=== PATIENT | female | born 1970 | race Caucasian/White ===

== ENCOUNTER 2017-09-03 02:00 | Emergency (ER) | payer OTHER ==
[~2017-09-03] VITALS: Ht 160 cm; Wt 90.7 kg
[~2017-09-03 02:00] MED LIST: LISINOPRIL10 MG PO; MACROBID 100 M100 MG PO
--- OUTSIDE RECORDS SUMMARY | 2017-09-03 02:03 | XMS REPORT | Summary of Care ---
Author Author GRAHAM Houston, SANA Organization Unknown Address [facility] Phone Unavailable Care Team Providers Care Credit Control Administrator Name Role Phone GRAHAM Houston, SANA Unavailable Unavailable MITRA Houston, SHAWNEE Unavailable Unavailable PURNIMA N.P., FOREST Unavailable Unavailable OBONYKM N.P., STONE Unavailable Unavailable SANA STEVENSON MD Unavailable Unavailable Unavailable Unavailable Functional Status Name Dates Details Functional status health issues are not documented Status: Name Dates Details Cognitive status health issues are not documented Status: Problems Name Dates Details Visit for screening mammogram (V76.12, Z12.31) Status: Active Chemotherapy-induced nausea (787.02, R11.0) Status: Active Ringing in ears (388.30, H93.19) Status: Active Cervical cancer (180.9, C53.9) Status: Active Insomnia (780.52, G47.00) Status: Active Peripheral neuropathy (356.9, G62.9) Status: Active Menopausal syndrome (627.2, N95.1) Status: Active Pelvic pain in female (625.9, R10.2) Status: Active Headache (784.0, R51) Status: Active Encounter for screening mammogram for breast cancer (V76.12, Z12.31) Status: Active Cardiovascular risk factor (V15.89, Z91.89) Status: Active 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, 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 Dyspnea (786.09, R06.00) Status: Active Chest pain (786.50, R07.9) Status: Active Status post chemotherapy (V87.41, Z92.21) Status: Active Hyperlipidemia (272.4, E78.5) Status: Active On statin therapy (V58.69, Z79.899) Status: Active Screening for cervical cancer (V76.2, Z12.4) Status: Active Screening for breast cancer (V76.10, Z12.31) Status: Active Difficulty in swallowing (787.20, R13.10) Status: Active Hiatal hernia (553.3, K44.9) Status: Active Abdominal pain (789.00, R10.9) Status: Active Dysphagia (787.20, R13.10) Status: Active Diarrhea (787.91, R19.7) Status: Active GERD (gastroesophageal reflux disease) (530.81, K21.9) Status: Active Colon cancer screening (V76.51, Z12.11) Status: Active Medications Name Dates Details Lisinopril 20 MG Oral Tablet TAKE 1 TABLET DAILY Active Citalopram Hydrobromide 40 MG Oral Tablet TAKE 1 TABLET DAILY. * Refills: 0 Active Folic Acid 1 MG Oral Tablet TAKE 1 TABLET DAILY. * Refills: 0 Active Estradiol 1 MG Oral Tablet TAKE 1 TABLET BY MOUTH EVERY DAY * Quantity: 30 Refills: 5 PURNIMA N.P.FOREST * Start : 15-Aug-2015 Active MedroxyPROGESTERone Acetate 2.5 MG Oral Tablet TAKE 1 TABLET DAILY. * Quantity: 30 Refills: 5 PURNIMA N.P.FOREST * Start : 15-Aug-2015 Active Multivitamin Women Oral Tablet TAKE 1 TABLET DAILY. * Refills: 0 * Start : 11-Jun-2016 Active Vitamin C 1000 MG Oral Tablet TAKE 2 TABLET DAILY * Refills: 0 * Start : 11-Jun-2016 Active Ginkgo Biloba CAPS 120 mg 2 daily * Refills: 0 Active Vitamin D3 5000 UNIT Oral Tablet TAKE 1 TABLET DAILY * Refills: 0 * Start : 11-Jun-2016 Active Lyrica 150 MG Oral Capsule TAKE 1 CAPSULE DAILY * Refills: 0 Active Omeprazole 40 MG Oral Capsule Delayed Release TAKE 1 CAPSULE Daily 30 min to 1hr before breakfast * Quantity: 30 Refills: 6 HEBER N.PSTONE Morton * Start : 13-Jun-2017 Active Clenpiq 10-3.5-12 MG-GM -GM/160ML Oral Solution Drink first bottle at 5pm, Drink second bottle at 10pm. Follow doctors instructions. * Quantity: 1 Refills: 0 SHAWNEE MANRIQUEZ M.D. * Start : 13-Jun-2017 Active 2 x 160 ML Bottle Allergies and Adverse Reactions Name Dates Details No Known Allergies (Allergy) Status: Active Past Medical History Name Dates Details History of essential hypertension (V12.59, Z86.79) Status: Resolved History of Mild intermittent reactive airway disease without complication ( 493.90, J45.20) Status: Resolved History of ovarian cyst (V13.29, Z87.42) Status: Resolved Procedures Procedure Dates Details Port Flush Date: 10-Jun-2017 Colonoscopy Date: 13-Jun-2017 EGD (Esophagogastroduodenoscopy) Date: 13-Jun-2017 [QLH] CULTURE, STOOL (CAMPYLOBACTER, SALMONELLA/SHIGELLA) Date: 13-Jun-2017 [QLH] CLOSTRIDIUM DIFFICILE TOXIN A AND B, EIA Date: 13-Jun-2017 [QLH] CALPROTECTIN, STOOL Date: 13-Jun-2017 [QLH] FECAL LEUKOCYTE STAIN Date: 13-Jun-2017 [QLH] CBC (INCLUDES DIFF/PLT) Date: 10-Jun-2017 [QLH] CMP W/EGFR Date: 10-Jun-2017 [QLH] MAGNESIUM Date: 10-Jun-2017 [QLH] URIC ACID Date: 10-Jun-2017 [QLH] T4, FREE Date: 10-Jun-2017 [QLH] TSH, 3RD GENERATION Date: 10-Jun-2017 MA Digital Mammo Screening Derrick G0202 Date: 10-Jun-2017 Immunization Name Dates Details Immunizations not documented Family History Name Dates Details Family history of arthritis (V17.7, Z82.61) Status: Active Family history of essential hypertension (V17.49, Z82.49) Status: Active Name Dates Details Family history of myocardial infarction (V17.3, Z82.49) Status: Active Name Dates Details Family history of malignant neoplasm of cervix (V16.49, Z80.49) Status: Active Family history of fibromyalgia (V17.89, Z82.69) Status: Active Name Dates Details Family history of arthritis (V17.7, Z82.61) Status: Active Name Dates Details Family history of myocardial infarction (V17.3, Z82.49) Status: Active Name Dates Details Family history of Type 2 diabetes mellitus without complication (250.00, E11.9 ) Status: Active Name Dates Details Family history of arthritis (V17.7, Z82.61) Status: Active Family history of essential hypertension (V17.49, Z82.49) Status: Active Name Dates Details Family history of myocardial infarction (V17.3, Z82.49) Status: Active Name Dates Details Family history of essential hypertension (V17.49, Z82.49) Status: Active Family history of myocardial infarction (V17.3, Z82.49) Status: Active Name Dates Details Family history of alcoholism (V17.0, Z81.1) Status: Active Social History Name Dates Details - Status: Name Dates Details Never smoker Vital Signs Date Test Result Details [id number] BP Systolic 116 mm[Hg] Status: Comments: Location: LUE; Position: Sitting BP Diastolic 76 mm[Hg] Status: Comments: Location: LUE; Position: Sitting Height 63 in Status: Weight 214 lb Status: Body Mass Index Calculated 37.91 kg/m2 Status: Body Surface Area Calculated 1.99 m2 Status: Temperature 98.4 f Status: Heart Rate 93 /min Status: Comments: Location: L Radial; Quality: Normal Respiration Rate 16 /min Status: [id number]:31 BP Systolic 143 mm[Hg] Status: Comments: Location: RUE; Position: Sitting BP Diastolic 88 mm[Hg] Status: Comments: Location: RUE; Position: Sitting Height 63 in Status: Weight 213 lb Status: Body Mass Index Calculated 37.73 kg/m2 Status: Body Surface Area Calculated 1.99 m2 Status: Temperature 98 f Status: Comments: Method: Oral Heart Rate 74 /min Status: Respiration Rate 18 /min Status: Results Date Description Value Details :17 MA Digital Mammo Screen Derrick w timothy G0202 Digital Mammo Screen Derrick MA w timothy SEE NOTES Comments: BILATERAL DIGITAL SCREENING MAMMOGRAM 3D/2D WITH CAD: 06/12/2017CLINICAL: /Screen. Current study was evaluated with a Computer Aided Detection (CAD) system. COMPARISON: Comparison is made to exam dated: 05/14/2015 mammogram - [facility]. TECHNIQUE: Digital Breast Tomosynthesis was performed and utilized forInterpretation. [employer] Version 1.3 was utilized for computer aided detection. FINDINGS:The tissue of both breasts is heterogeneously dense, which could obscuredetection of small masses. There are benign calcifications in both breasts. No significant masses, calcifications, or other findings are seen in eitherbreast. There has been no significant interval change.IMPRESSION: BENIGNRECOMMENDATION:There is no mammographic evidence of malignancy. A 1 yearscreening mammogram is recommended.(06/13/2018) This exam was interpreted [id number] for [facility] [place]. Josué beltran/brittanyrad: 14:24:05 Geophysical Support Specialist(s): Halley Padilla [facility] sent: BI-RADS 1/2 Dense Mammogram BI-RADS: 2 Benign--Read by: Josué Padilla MDDictated Date/time: 06/12/17 14:24Electronically Signed by: Josué Padilla MD 06/12/1813:24FINAL REPORT [id number] . Bruce - PAP Comments: Department of Pathology & Laboratory Medicine For: MSB 2.[address] [place] [id number] [facility] Phone: [phone] Email: [email or web address] [address] [email or web address] Thin Prep LMP: Clinical History: Cervical cancer HPVHPV 16 & 18/45 Statement of Adequacy: Satisfactory for evaluation.Endocervical/transformation component present. Diagnosis:Negative for intraepithelial lesion or malignancy. Oral And Maxillofacial Pathologist: Domonique Palacios Electronically Signed ( [id number]) HPVHigh Risk~NegativeTesting is performed using FDA- approved APTIMA HPV assay (i.e., Paint Roller Winder-mediatedamplification of E6/E7 viral mRNA followed by hybridization protection assay). Thisassay is designed to detect the 14 high-risk types of human papillomavirus (HPV Types 16,18, 31, 33, 35, 39, 45, 51, 52, 56, 58, 59, 66 and 68) known to cause cervical cancer. The assay has been reported to detect more than 90% of CIN3+, an immediate precursor tocarcinoma in situ. A negative result does not exclude the possibility of cytologicabnormalities or of future or underlying CIN2, CIN3, or cancer. Personal lubricantscontaining polyquaternium 15 and antifungal medications containing tioconazole mayinterfere with the assay performance. In vitro transcripts from low-risk HPV pwpsibdkv17, 67, 70 and 82 exhibited cross- reactivity with the assay. The test result must beinterpreted along with the patient's cytology history, other risk factors and otherpertinent laboratory data. The results of this test are not intended to substitute forregular cervical cytology screening. The assay performance has not been evaluated forHPV vaccinated individuals. The effects of other potential variables, such as vaginaldischarge, use of tampons, etc. and specimen collection variables have not beenevaluated.This assay has been validated by the [facility] Department of Pathology and Laboratory Medicine.Shonna Khan MD, PhD The pap smear is a screening test used as an aid in detecting cervical cancer and itsprecursors. Published data indicates that pap smear testing is subject to false negativeand false positive results. For this reason, periodic repeat testing and follow up of anyunexplained clinical signs and symptoms is recommended.This slide was screened with the aid of the [employer] System. PAP REPORT Plan of Care Name Dates Details Planned Observations Planned Goals not documented Planned Encounters Gastroenterology Referral Appointment; SHAWNEE MANRIQUEZ M.D. On: 25-Jun-2017 8:00 Appointment; SANA STEVENSON M.D. On: 08-Jul-2017 12:40 Interventions Provided Labs/Procedures/Imaging* [QLH] CBC (INCLUDES DIFF/PLT); To Be Done: 10 Jun 2017 * [QLH] CMP W/EGFR; To Be Done: 10 Jun 2017 * [QLH] MAGNESIUM; To Be Done: 10 Jun 2017 * [QLH] T4, FREE; To Be Done: 10 Jun 2017 * [QLH] TSH, 3RD GENERATION; To Be Done: 10 Jun 2017 * [QLH] URIC ACID; To Be Done: 10 Jun 2017 * MA Digital Mammo Screening Derrick G0202; To Be Done: 10 Jun 2017 * Port Flush; To Be Done: 10 Jun 2017 * . [facility] - PAP; Done: 10 Jun 2017 Instructions Name Dates Details Instructions not documented Encounters Appointment; GENERAL, AUDIOLOGY- Encounter Diagnosis: Problem not documented On: 10-Aug-2015 8:30 Appointment; CUCO ABRAMS M.D. Encounter Diagnosis: Problem not documented On: 12-Aug-2015 13:45 Appointment; SANA STEVENSON M.D. Encounter Diagnosis: Problem not documented On: 15-Aug-2015 13:40 Appointment; SANA STEVENSON M.D. Encounter Diagnosis: Problem not documented On: 29-Aug-2015 12:40 Appointment; AUSTIN PINTO M.D. Encounter Diagnosis: Problem not documented On: 21-Sep-2015 9:30 Appointment; AUSTIN PINTO M.D. Encounter Diagnosis: Problem not documented On: 28-Sep-2015 14:30 Appointment; CUCO ABRAMS M.D. Encounter Diagnosis: Problem not documented On: 10-Oct-2015 13:00 Appointment; AUSTIN PINTO M.D. Encounter Diagnosis: Problem not documented On: 19-Oct-2015 10:45 Appointment; SANA STEVENSON M.D. Encounter Diagnosis: Problem not documented On: 07-Nov-2015 9:20 Appointment; SANA STEVENSON M.D. Encounter Diagnosis: Problem not documented On: 05-Dec-2015 10:40 Appointment; SANA STEVENSON M.D. Encounter Diagnosis: Problem not documented On: 19-Dec-2015 10:40 Appointment; SANA STEVENSON M.D. Encounter Diagnosis: Problem not documented On: 30-Jan-2016 9:40 Appointment; SANA STEVENSON M.D. Encounter Diagnosis: Problem not documented On: 13-Feb-2016 10:40 Appointment; AUSTIN PINTO M.D. Encounter Diagnosis: Problem not documented On: 22-Feb-2016 8:45 Appointment; UASTIN PINTO M.D. Encounter Diagnosis: Problem not documented On: 07-Mar-2016 15:00 Appointment; AUSTIN PINTO M.D. Encounter Diagnosis: Problem not documented On: 19-Mar-2016 10:40 Appointment; SANA STEVENSON M.D. Encounter Diagnosis: Problem not documented On: 14-May-2016 11:40 Appointment; SANA STEVENSON M.D. Encounter Diagnosis: Problem not documented On: 21-May-2016 11:40 Appointment; VICENTE MCDONNELL M.D. Encounter Diagnosis: Problem not documented On: 11-Jun-2016 15:00 Appointment; [facility] Encounter Diagnosis: Problem not documented On: 20-Jun-2016 16:00 Appointment; [facility] Encounter Diagnosis: Problem not documented On: 26-Jun-2016 15:00 Appointment; VICENTE MCDONNELL M.D. Encounter Diagnosis: Problem not documented On: 26-Jun-2016 15:30 Appointment; SANA STEVENSON M.D. Encounter Diagnosis: Problem not documented On: 13-Aug-2016 11:40 Appointment; VICENTE MCDONNELL M.D. Encounter Diagnosis: Problem not documented On: 24-Sep-2016 14:45 Appointment; VICENTE MCDONNELL M.D. Encounter Diagnosis: Problem not documented On: 30-Oct-2016 14:00 Appointment; SANA STEVENSON M.D. Encounter Diagnosis: Problem not documented On: 12-Nov-2016 11:20 Appointment; SANA STEVENSON M.D. Encounter Diagnosis: Problem not documented On: 05-Jun-2017 12:00 Appointment; SANA STEVENSON M.D. Encounter Diagnosis: Problem not documented On: 10-Jun-2017 14:40
[2017-09-03] MEDS ORDERED: MORPHINE SULFATE 2 MG/ML SYR IV STA (02:21)
[2017-09-03] MEDS ORDERED: PANTOPRAZOLE 40 MG 10ML VIAL IV STA (02:21)
[2017-09-03] MEDS ORDERED: KETOROLAC TROMETHAMINE 30 MG/ML VIAL IV STA (02:21)
[2017-09-03] MEDS ORDERED: SODIUM CHLORIDE 0.9% 1000ML 1,000 ML IV STA (02:21)
[2017-09-03] MEDS ORDERED: ONDANSETRON HCL 4 MG ORAL DISINTEGRATING TAB PO ONE (02:30)
[2017-09-03 02:33] LABS: BASOPHILS % 0.3 % (0.0-1.0); EOSINOPHILS # (AUTO) 0.1 (0.0-0.4); EOSINOPHILS % 0.7 % (0.0-6.0); HEMATOCRIT 46.4 % (34.2-44.1); HEMOGLOBIN 15.5 g/dL (12.0-16.0); LYMPHOCYTES # (AUTO) 1.4 (1.0-3.2); MEAN CORPUSCULAR HEMOGLOBIN 31.4 pg (28-32); MEAN CORPUSCULAR HGB CONC 33.4 g/dL (31-35); MEAN CORPUSCULAR VOLUME 94.1 fL (81-99); MONOCYTES # (AUTO) 0.6 (0.2-0.8); MONOCYTES % 4.7 % (4.4-11.3); NEUTROPHILS # (AUTO) 10.7 (2.1-6.9); NEUTROPHILS % 82.8 % (38.7-80.0); PLATELET COUNT 392 x10e3/uL (140-360); RED BLOOD COUNT 4.93 x10e6/uL (3.6-5.1); RED CELL DISTRIBUTION WIDTH 13.6 % (11.7-14.4)
[2017-09-03 02:41] LABS: INR 0.96
[2017-09-03 02:42] LABS: PARTIAL THROMBOPLASTIN TIME 22.6 seconds (23.8-35.5)
[2017-09-03 02:50] LABS: ALANINE AMINOTRANSFERASE 32 IU/L (0-55); ALBUMIN 4.1 g/dL (3.5-5.0); ALBUMIN/GLOBULIN RATIO 1.1 (0.8-2.0); ALKALINE PHOSPHATASE 56 IU/L (40-150); AMYLASE 49 U/L (25-125); ANION GAP 14.9 mmol/L (8-16); BLOOD UREA NITROGEN 17 mg/dL (7-26); BUN/CREATININE RATIO 16 (6-25); CALCIUM 10.3 mg/dL (8.4-10.2); CARBON DIOXIDE 30 mmol/L (22-29); CHLORIDE 101 mmol/L (98-107); CREATINE KINASE 51 IU/L (29-168); CREATININE, SERUM 1.04 mg/dL (0.57-1.11); EST GLOMERULAR FILTRATION RATE 57 ML/MIN (60-); GLUCOSE 182 mg/dL (74-118); LIPASE 24 U/L (8-78); MAGNESIUM 2.2 MG/DL (1.3-2.1); POTASSIUM 4.9 mmol/L (3.5-5.1); SODIUM 141 mmol/L (136-145)
[2017-09-03 02:56] LABS: CLARITY,URINE HAZY (CLEAR); COLOR,URINE YELLOW (YELLOW)
[2017-09-03 02:58] LABS: BILIRUBIN,URINE 1+ (NEGATIVE); KETONES,URINE NEGATIVE (NEGATIVE); LEUKOCYTE ESTERASE ,URINE TRACE (NEGATIVE); NITRITE,URINE NEGATIVE (NEGATIVE); PROTEIN,URINE DIPSTICK TRACE (NEGATIVE); URINE UROBILINOGEN 0.2 mg/dL (0.2 - 1)
[2017-09-03 02:59] LABS: PREGNANCY TEST, URINE NEGATIVE (NEGATIVE)
[2017-09-03 03:07] LABS: BACTERIA,URINE MANY /HPF; EPITHELIAL CELLS,URINE MANY /LPF; TRANSITIONAL EPI CELLS,URINE FEW
[2017-09-03] MEDS ORDERED: IOPAMIDOL 370 MG/ML 200 ML INFUS..BTL INJ ONE (03:29)
[2017-09-03] MEDS ORDERED: SODIUM CHLORIDE 0.9% 50ML 50 ML ONE (03:29)
[2017-09-03 03:58] LABS: BILIRUBIN,URINE NEGATIVE (NEGATIVE); CLARITY,URINE CLEAR (CLEAR); COLOR,URINE YELLOW (YELLOW); KETONES,URINE NEGATIVE (NEGATIVE); LEUKOCYTE ESTERASE ,URINE NEGATIVE (NEGATIVE); NITRITE,URINE NEGATIVE (NEGATIVE); PROTEIN,URINE DIPSTICK NEGATIVE (NEGATIVE); URINE UROBILINOGEN 0.2 mg/dL (0.2 - 1)
[2017-09-03 04:09] LABS: BACTERIA,URINE MODERATE /HPF; EPITHELIAL CELLS,URINE FEW /LPF; WBC,URINE (MAN) 0-5 /HPF (0-5)
--- NOTE | 2017-09-03 04:29 | Diagnostic Imaging Report ---
EXAM: CT Abdomen and Pelvis WITHOUT and WITH contrast INDICATION: History of renal stones, cervical carcinoma, abdominal pain COMPARISON: 03/29/2015 TECHNIQUE: Abdomen and pelvis were scanned utilizing a multidetector helical scanner from the lung base to the pubic symphysis before and after administration of IV contrast. Coronal and sagittal reformations were obtained. Routine protocol was performed. Scan was performed when during portal venous phase. IV CONTRAST: 100 mL of Isovue-300 ORAL CONTRAST: Water RADIATION DOSE: Total DLP: 1545.09 mGy*cm Estimated effective dose: (DLP x 0.015 x size factor) mSv COMPLICATIONS: None FINDINGS: LINES and TUBES: None. LOWER THORAX: Unremarkable HEPATOBILIARY: No focal hepatic lesions. No biliary ductal dilation. GALLBLADDER: No radio-opaque stones or sludge. No wall thickening. SPLEEN: No splenomegaly. PANCREAS: No focal masses or ductal dilatation. ADRENALS: No adrenal nodules KIDNEYS/URETERS: Kidneys enhance symmetrically. No hydronephrosis. No cystic or solid mass lesions. Bilateral nonobstructive stones measuring between 2 and 3 mm in diameter visualized in the right upper renal collecting system, bilateral interpolar regions and bilateral inferior poles GI TRACT: No abnormal distention, wall thickening, or evidence of bowel obstruction. Appendix is normal. PELVIC ORGANS/BLADDER: The cervical mass has been treated with now atrophy/resection of the lower uterine segment LYMPH NODES: No lymphadenopathy. VESSELS: Unremarkable. PERITONEUM / RETROPERITONEUM: No free air or fluid. BONES: Unremarkable. SOFT TISSUES: Unremarkable. IMPRESSION: 1. Post treatment resection/response of the cervical mass without evidence of residual disease or adenopathy. 2. Bilateral nonobstructing nephrolithiasis Signed by: Dr. Noel Benavides M.D. on 09/03/2017 4:26 AM
== END 2017-09-03 05:38 | disposition home or self-care (01) ==
LOC: ER 02:00
CPT/HCPCS: 36415; 74178; 80053; 81001; 81025; 82150; 82550; 82553; 83690; 83735; 84484; 85025; 85610; 85730; 99284; J1885; J7030; Q9967

== ENCOUNTER 2018-08-27 15:44 | Inpatient (IN) | payer OTHER ==
[~2018-08-27] VITALS: Ht 160 cm; Wt 93.0 kg
--- OUTSIDE RECORDS SUMMARY | 2018-08-27 15:47 | XMS REPORT ---
Author Author [facility] Address Unknown Phone Unavailable Care Team Providers Care Jewelry Setter Name Role Phone Isak TEJADA Unavailable Unavailable Problems This patient has no known problems. Allergies, Adverse Reactions, Alerts This patient has no known allergies or adverse reactions. Medications This patient has no known medications. Results Test Description Test Time Test Comments Text Results Atomic Results Result Comments CT ABDOMEN/PELVIS WOW [place] [address] Patient Name: RODRIGUE PARKER MR #: [id number] : 1970 Age/Sex: 47/F Req #: [id number] Adm Physician: Ordered by: CHINTAN TEJADA MD Report #: [id number] Location: ER Room/Bed: Procedure: [id number] CT/CT ABDOMEN/PELVIS WOW Exam Date: Exam Time: REPORT STATUS: Signed EXAM: CT Abdomen and Pelvis WITHOUT and WITH contrast INDICATION: History of renal stones, cervical carcinoma, abdominal pain COMPARISON: 03/29/2015 TECHNIQUE: Abdomen and pelvis were scanned utilizing a multidetector helical scanner from the lung base to the pubic symphysis before and after administration of IV contrast. Coronal and sagittal reformations were obtained. Routine protocol was performed. Scan was performed when during portal venous phase. IV CONTRAST: 100 mL of Isovue-300 ORAL CONTRAST: Water RADIATION DOSE: Total DLP: 1545.09 mGy*cm Estimated effective dose: (DLP x 0.015 x size factor) mSv COMPLICATIONS: None FINDINGS: LINES and TUBES: None. LOWER THORAX: Unremarkable HEPATOBILIARY: No focal hepatic lesions. No biliary ductal dilation. GALLBLADDER: No radio-opaque stones or sludge. No wall thickening. SPLEEN: No splenomegaly. PANCREAS: No focal masses or ductal dilatation. ADRENALS: No adrenal nodules KIDNEYS/URETERS: Kidneys enhance symmetrically. No hydronephrosis. No cystic or solid mass lesions. Bilateral nonobstructive stones measuring between 2 and 3 mm in diameter visualized in the right upper renal collecting system, bilateral interpolar regions and bilateral inferior poles GI TRACT: No abnormal distention, wall thickening, or evidence of bowel obstruction. Appendix is normal. PELVIC ORGANS/BLADDER: The cervical mass has been treated with now atrophy/resection of the lower uterine segment LYMPH NODES: No lymphadenopathy. VESSELS: Unremarkable. PERITONEUM / RETROPERITONEUM: No free air or fluid. BONES: Unremarkable. SOFT TISSUES: Unremarkable. IMPRESSION: 1. Post treatment resection/response of the cervical mass without evidence of residual disease or adenopathy. 2. Bilateral nonobstructing nephrolithiasis Signed by: Dr. Noel Benavides M.D. on 09/03/2017 4:26 AM Dictated By: NOEL OBRIEN MD 5 Transcribed By: CHRISTOPHER on 09/03/17425 COPY TO: CHINTAN TEJADA MD
--- OUTSIDE RECORDS SUMMARY | 2018-08-27 15:47 | XMS REPORT | Summary of Care ---
Author Author SANA STEVENSON M.D. Organization Unknown Address [facility] Phone Unavailable Care Team Providers Care Wool And Pelt Grader Name Role Phone SANA STEVENSON M.D. Unavailable Unavailable MITRA Houston, SHAWNEE Unavailable Unavailable HEBER N.P., STONE Unavailable Unavailable JEFF N.PPraveen, GLADYS Unavailable Unavailable SANA STEVENSON MD Unavailable Unavailable [...] EVERY DAY * Quantity: 30 Refills: 5 GLADYS AGUILAR N.P. * Start : 15-Aug-2015 Active MedroxyPROGESTERone Acetate 2.5 MG Oral Tablet TAKE 1 TABLET DAILY. * Quantity: 30 Refills: 5 GLADYS AGUILAR N.P. * Start : 15-Aug-2015 Active Multivitamin Women [...] before breakfast * Quantity: 30 Refills: 6 STONE BUCK N.P. * Start : 13-Jun-2017 Active Clenpiq 10-3.5-12 MG-GM -GM/160ML Oral Solution Drink first bottle at 5pm, Drink second bottle at 10pm. Follow doctors instruct ions. * Quantity: 1 Refills: 0 SHAWNEE MANRIQUEZ M.D. * Start : 13-Jun-2017 Active 2 x 160 ML Bottle Allergies and Adverse Reactions Name Dates Details No Known Allergies (Allergy) Status: Active Past Medical History Name Dates Details History of essential hypertension (V12.59, Z86.79) Status: Resolved History of Mild intermittent reactive airway disease without complication (493.90, J45.20) Status: Resolved History of ovarian cyst (V13.29, Z87.42) Status: Resolved Procedures Procedure Dates Details Procedures not documented Immunization Name Dates Details Immunizations not documented [...] Type 2 diabetes mellitus without complication (250.00, E11.9) Status: Active Name Dates Details Family history [...] smoker Vital Signs Date Test Result Details No Known Vitals to report Results Date Description Value Details Results not documented Plan of Care Name Dates Details Planned Observations Planned Goals not documented Planned Encounters Appointment; SANA STEVENSON M.D. On: 07-Jul-2018 13:40 Interventions Provided Medication Changes* Estradiol 1 MG Oral Tablet - Renew * MedroxyPROGESTERone Acetate 2.5 MG Oral Tablet - Renew Discussion/Summary* Ms. 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 * 1. Cancer Surveillance: * - Pelvic exam NITESH. * port a cath removal ordered. Sent order to Interventional radiology. Ms. Brooks aware and consent signed. * 2. Medication review: * Refill Provera and estradiol medication. She tolerating well w/o complications. * 3. Possible Fibromyalgia * - seen by her PCP for management per patient. She is taking Gabapentin & Lyrica at this time. * Discussion and Examination done with Dr. Stevenson. * RTC 6 months. No evidence of recurrence. * Discussed above with patient. Questions answered. Instructions Name Dates Details Instructions not documented Encounters Appointment; SANA STEVENSON M.D. Encounter Diagnosis: Problem not documented On: 30-Jan-2016 9:40 Appointment; SANA STEVENSON M.D. Encounter Diagnosis: Problem not documented On: 13-Feb-2016 10:40 Appointment; AUSTIN PINTO M.D. Encounter Diagnosis: Problem not documented On: 22-Feb-2016 8:45 Appointment; AUSTIN PINTO M.D. Encounter Diagnosis: Problem not documented On: 07-Mar-2016 15:00 Appointment; AUSTIN PINTO M.D. Encounter Diagnosis: Problem not documented On: 19-Mar-2016 10:40 Appointment; SANA STEVENSON M.D. Encounter Diagnosis: Problem not documented On: 14-May-2016 11:40 Appointment; SANA STEVENSON M.D. Encounter Diagnosis: Problem not documented On: 21-May-2016 11:40 Appointment; VICENTE MCDONNELL M.D. Encounter Diagnosis: Problem not documented On: 11-Jun-2016 15:00 Appointment; [facility] Encounter Diagnosis: Problem not documented On: 20-Jun-2016 16:00 Appointment; [facility] Encounter Diagnosis: Problem not documented On: [...] Diagnosis: Problem not documented On: 10-Jun-2017 14:40 Appointment; SHAWNEE MANRIQUEZ M.D. Encounter Diagnosis: Problem not documented On: 13-Jun-2017 11:00 Appointment; SHAWNEE MANRIQUEZ M.D. Encounter Diagnosis: Problem not documented On: 02-Jul-2017 11:00 Appointment; SANA STEVENSON M.D. Encounter Diagnosis: Problem not documented On: 08-Jul-2017 12:40 Appointment; SANA STEVENSON M.D. Encounter Diagnosis: Problem not documented On: 18-Nov-2017 12:40 Appointment; SANA STEVENSON M.D. Encounter Diagnosis: Problem not documented On: 06-Jan-2018 12:20
[2018-08-27 17:17] LABS: CLARITY,URINE CLEAR (CLEAR); COLOR,URINE YELLOW (YELLOW)
[2018-08-27 17:18] LABS: BILIRUBIN,URINE NEGATIVE (NEGATIVE); KETONES,URINE NEGATIVE (NEGATIVE); LEUKOCYTE ESTERASE ,URINE NEGATIVE (NEGATIVE); NITRITE,URINE NEGATIVE (NEGATIVE); PROTEIN,URINE DIPSTICK NEGATIVE (NEGATIVE); URINE UROBILINOGEN 0.2 mg/dL (0.2 - 1)
[2018-08-27 17:29] LABS: BACTERIA,URINE MANY /HPF; EPITHELIAL CELLS,URINE MANY /LPF; WBC,URINE (MAN) 0-5 /HPF (0-5)
[2018-08-27] MEDS ORDERED: SODIUM CHLORIDE 0.9% 1000ML 1,000 ML IV STA (19:41)
[2018-08-27] MEDS ORDERED: MORPHINE SULFATE INJ 4 MG/ML INJ 1ML IV ONE (19:41)
[2018-08-27] MEDS ORDERED: KETOROLAC TROMETHAMINE 30 MG/ML VIAL IV ONE (19:41)
[2018-08-27] MEDS ORDERED: ONDANSETRON HCL INJ 2MG/ML 2ML 2 MG/ML VIAL IV ONE (19:41)
--- NOTE | 2018-08-27 19:43 | Diagnostic Imaging Report ---
EXAM: CT Abdomen and Pelvis WITHOUT contrast INDICATION: Right flank pain for 3 days. Kidney stones. COMPARISON: None. TECHNIQUE: Abdomen and pelvis were scanned utilizing a multidetector helical scanner from the lung base to the pubic symphysis without administration of IV contrast. Absence of intravenous contrast decreases sensitivity for detection of focal lesions and vascular pathology. Coronal and sagittal reformations were obtained. Renal stone protocol was performed. IV CONTRAST: None. ORAL CONTRAST: Water RADIATION DOSE: Total DLP: 831.60 mGy*cm Estimated effective dose: (DLP x 0.015 x size factor) mSv COMPLICATIONS: None FINDINGS: Examination is on the exception list with unverified demographics at the time of interpretation. LINES and TUBES: Artifact within the inferior right atrium may represent a catheter. LOWER THORAX: Bibasilar subsegmental atelectasis. HEPATOBILIARY: Hepatic steatosis. No focal hepatic lesions. No biliary ductal dilation. GALLBLADDER: No radio-opaque stones or sludge. No wall thickening. SPLEEN: No splenomegaly. PANCREAS: No focal masses or ductal dilatation. ADRENALS: No adrenal nodules KIDNEYS/URETERS: There is mild right hydroureteronephrosis, secondary to the presence of an obstructing calculus just proximal to the right UVJ measuring 5 mm on image 158 series 3. 2.7 mm calculus is present in the lower pole of the right kidney on image 68. Punctate calculus in the lower pole of the left kidney also on image 68. 3 mm calculus in the lower pole of the left kidney on images 64. 2 mm calculus in the interpolar region of the right kidney on image 55. GI TRACT: No abnormal distention, wall thickening, or evidence of bowel obstruction. Appendicolith at the base of the appendix which is otherwise unremarkable. PELVIC ORGANS/BLADDER: There is fat stranding in the parametrium bilaterally, left greater than right as seen on image 153 series 3, a significantly changed compared to the prior examination. Small rounded calcific densities present posterior to the urinary bladder are consistent with phleboliths, unchanged. LYMPH NODES: No lymphadenopathy. VESSELS: Unremarkable. PERITONEUM / RETROPERITONEUM: No free air or fluid. BONES: Unremarkable. SOFT TISSUES: Small fat-containing umbilical hernias. IMPRESSION: 1. 5 mm right distal ureteral calculus resulting in mild right hydroureteronephrosis. 2. Additional bilateral nephrolithiasis as detailed above. 3. Hepatic steatosis. 4. Stable mild stranding of the parametrium bilaterally, left greater than right. No measurable masses. Signed by: Dr. Torey Chairez M.D. on 08/27/2018 7:39 PM
[2018-08-27] MEDS ORDERED: HYDROMORPHONE 1MG/1ML INJ IV STA (20:04)
[2018-08-27] MEDS ORDERED: HYDROMORPHONE 2MG/ML 2 MG/ML ML ONE (20:05)
[2018-08-27] MEDS ORDERED: HYDROMORPHONE 1MG/1ML INJ IV PRN (20:15)
[2018-08-27 20:30] LABS: BASOPHILS # (AUTO) 0.1 (0.0-0.1); BASOPHILS % 0.5 % (0.0-1.0); EOSINOPHILS # (AUTO) 0.3 (0.0-0.4); EOSINOPHILS % 3.5 % (0.0-6.0); HEMATOCRIT 41.8 % (34.2-44.1); HEMOGLOBIN 13.7 g/dL (12.0-16.0); LYMPHOCYTES # (AUTO) 1.3 (1.0-3.2); LYMPHOCYTES % 14.2 % (18.0-39.1); MEAN CORPUSCULAR HEMOGLOBIN 31.2 pg (28-32); MEAN CORPUSCULAR HGB CONC 32.8 g/dL (31-35); MEAN CORPUSCULAR VOLUME 95.2 fL (81-99); MONOCYTES # (AUTO) 0.7 (0.2-0.8); MONOCYTES % 7.2 % (4.4-11.3); NEUTROPHILS % 74.3 % (38.7-80.0); PLATELET COUNT 357 x10e3/uL (140-360); RED BLOOD COUNT 4.39 x10e6/uL (3.6-5.1); RED CELL DISTRIBUTION WIDTH 13.2 % (11.7-14.4)
[2018-08-27] MEDS ORDERED: HYDROMORPHONE 2MG/ML 2 MG/ML ML IV ONE (20:30)
[2018-08-27 20:42] LABS: ALBUMIN 3.8 g/dL (3.5-5.0); ANION GAP 11.8 mmol/L (8-16); CALCIUM 10.1 mg/dL (8.4-10.2); CREATININE, SERUM 1.29 mg/dL (0.57-1.11); POTASSIUM 3.8 mmol/L (3.5-5.1)
[2018-08-27] MEDS: CEFTRIAXONE SOD 1 GM/NS 50 ML 50 ML IV SCH (21:44)
[2018-08-27] MEDS: SODIUM CHLORIDE 0.9% 1000ML 1,000 ML IV SCH (21:44)
[2018-08-27] MEDS ORDERED: LISINOPRIL20 MG PO (21:56)
[2018-08-27] MEDS ORDERED: ESTRADIOL1 MG PO (21:56)
[2018-08-27] MEDS ORDERED: LYRICA75 MG PO (21:56)
[2018-08-27] MEDS ORDERED: GABAPENTIN800 MG PO (21:57)
[2018-08-27] MEDS ORDERED: CITALOPRAM HBR20 MG PO (21:58)
[2018-08-27 22:24] VITALS: BP 133/72
--- NOTE | 2018-08-27 22:47 | NUR ---
PATIENT RECEIVED FROM EMERGENCY DEPARTMENT AT 2210. SHE'S ALERT AND ORIENTED X3, NO RESPIRATORY DISTRESS OBSERVED AND SHE DENIES PAIN. REDNESS NOTED TO THE LEFT FOOT, NO EDEMA NOTED TO THE EXTREMITIES. ORIENTED TO SURROUNDINGS, CALL LIGHT WITHIN EASY REACH, SHE'S INSTRUCTED TO CALL FOR ASSISTANCE NEEDED.
[2018-08-27 22:54] VITALS: BP 133/72
[2018-08-27 23:10] VITALS: BP 133/72
[2018-08-28] VITALS (8 sets, daily range): BP systolic 105–123; BP diastolic 56–72
[2018-08-28] MEDS: HYDROMORPHONE 2MG/ML 2 MG/ML ML IV PRN ×2 (04:42→17:57)
[2018-08-28] MEDS: ONDANSETRON HCL INJ 2MG/ML 2ML 2 MG/ML VIAL IV PRN ×2 (04:43→17:57)
--- NOTE | 2018-08-28 04:44 | NUR ---
PATIENT C/O RIGHT FLANK PAIN WITH PAIN SCORE #4, MEDICATED WITH DILAUDID AND ZOFRAN ORDERED. SHE USED THE RESTROOM PRIOR TO ADMINISTERING THE MEDICATION. CALL LIGHT WITHIN EASY REACH, SHE'S INSTRUCTED TO CALL FOR ASSISTANCE UPON GETTING OUT OF THE BED.
[2018-08-28] MEDS: SODIUM CHLORIDE 0.9% 1000ML 1,000 ML IV SCH ×3 (06:47→17:48)
[2018-08-28 07:05] LABS: BASOPHILS # (AUTO) 0.1 (0.0-0.1); BASOPHILS % 0.7 % (0.0-1.0); EOSINOPHILS # (AUTO) 0.4 (0.0-0.4); EOSINOPHILS % 6.2 % (0.0-6.0); HEMATOCRIT 36.1 % (34.2-44.1); HEMOGLOBIN 11.9 g/dL (12.0-16.0); LYMPHOCYTES # (AUTO) 1.4 (1.0-3.2); LYMPHOCYTES % 20.1 % (18.0-39.1); MEAN CORPUSCULAR HEMOGLOBIN 31.6 pg (28-32); MEAN CORPUSCULAR VOLUME 95.8 fL (81-99); MONOCYTES # (AUTO) 0.6 (0.2-0.8); MONOCYTES % 8.2 % (4.4-11.3); NEUTROPHILS # (AUTO) 4.5 (2.1-6.9); NEUTROPHILS % 64.4 % (38.7-80.0); PLATELET COUNT 292 x10e3/uL (140-360); RED BLOOD COUNT 3.77 x10e6/uL (3.6-5.1); RED CELL DISTRIBUTION WIDTH 13.2 % (11.7-14.4)
[2018-08-28 07:28] LABS: ALBUMIN 3.1 g/dL (3.5-5.0); ALBUMIN/GLOBULIN RATIO 1.1 (0.8-2.0); ANION GAP 9.2 mmol/L (8-16); CALCIUM 8.8 mg/dL (8.4-10.2); CREATININE, SERUM 1.09 mg/dL (0.57-1.11); POTASSIUM 4.2 mmol/L (3.5-5.1)
--- NOTE | 2018-08-28 07:37 | NUR ---
Rcvd patient in report this am. Patient is asleep in bed at this time. No s/s of distress noted
--- NOTE | 2018-08-28 13:06 | Diagnostic Imaging Report ---
Exam: KUB -3 views Clinical History: Renal stones Comparison: CT abdomen/pelvis 08/27/2018. Findings: Nonobstructive bowel gas pattern. There is a 5 mm calcification near the right UVJ, corresponding to UVJ stone on prior CT. There are punctate 2 mm bilateral lower pole renal calcifications, better characterized on prior CT. Additional small bilateral renal stones are not well seen by radiograph. No acute bony abnormality. Impression: A 5 mm calcification near the right UVJ, corresponding to stone on prior CT. The position is similar to the prior study, accounting for differences in technique. Additional punctate bilateral renal stones, better characterized on prior CT. Signed by: Dr. Rocky Nelson MD on 08/28/2018 1:03 PM
--- NOTE | 2018-08-28 15:49 | Consultation ---
DATE OF CONSULTATION: 08/28/2018 Urology Consultation REASON FOR CONSULTATION: Renal colic. HISTORY OF PRESENT ILLNESS: oNhemi Brooks is a 48-year-old woman with a history of recurrent urolithiasis. The patient has not followed up in a few years. She had stone surgery to address multiple stones and one of those surgeons diagnosed the patient with a cervical mass, this was a rather advanced cancer. She underwent radiotherapy and chemotherapy and is believed to be cured. The patient had severe right-sided flank pain radiating to the right groin, reported to the emergency room, was evaluated and found to have an obstructing 5 mm ureteral stone and was subsequently admitted. PAST MEDICAL AND SURGICAL HISTORY: 1. Cervical cancer, status post radiotherapy and chemotherapy. 2. zero, para zero. 3. Recurrent urolithiasis. ALLERGIES: NONE KNOWN. CURRENT MEDICATIONS: Refer to the MAR. SOCIAL HISTORY: The patient denies smoking, alcohol, or drug use. 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 FAMILY HISTORY: Noncontributory to the active urological problems. REVIEW OF SYSTEMS: Discussed as above in history of present illness and past medical history, otherwise negative for all systems. PHYSICAL EXAMINATION: GENERAL: Healthy-appearing 48-year-old woman lying in bed, in no apparent distress. VITAL SIGNS: She is currently afebrile. Vital signs are currently stable. ABDOMEN: Soft, nondistended, and nontender with mild right-sided costovertebral angle tenderness. Kidneys not palpable without hepatosplenomegaly. No obvious evidence of hernia. For the remaining physical examination systems, please refer to the admission history and physical in the chart as well as the ERT sheet. LABORATORY STUDIES: CT scan of the abdomen pelvis shows bilateral small kidney stones. It also shows a 5 mm obstructing distal right ureteral stone with hydroureteronephrosis. Urine culture is pending. White blood cell count 7050, hemoglobin is low at 11.9, and platelets are normal at 292,000. The patient's creatinine was slightly elevated last night at 1.29 and this morning, it is better at 1.09. Calcium was normal at 8.8. ASSESSMENT: 1. Right renal colic. 2. Right ureterolithiasis. 3. Right hydroureteronephrosis. 4. Bilateral small kidney stones. 5. Anemia. 6. Acute renal failure that is improved. 7. Bacteriuria and possible urinary tract infection. PLAN: 1. Intravenous antibiotics. 2. Intravenous hydration. 3. Stone passage trial. 4. Should the patient fail to pass her stone with a reasonable trial of at least another day, then I will post her to the operating room for stone management procedure and ureteral stent placement. Thank you very much for allowing us in care of your patient. We will be happy to follow along with you as well as an outpatient. Julio C MD Ju [facility] /[id number] cc: Cash Medina MD
[2018-08-28] MEDS: CEFTRIAXONE SOD 1 GM/NS 50 ML 50 ML IV SCH (21:32)
[2018-08-29] MEDS: HYDROMORPHONE 2MG/ML 2 MG/ML ML IV PRN ×2 (00:02→12:57)
[2018-08-29] MEDS: ONDANSETRON HCL INJ 2MG/ML 2ML 2 MG/ML VIAL IV PRN ×2 (00:02→12:58)
[2018-08-29 00:03] VITALS: BP 122/60
[2018-08-29 03:48] VITALS: BP 114/58
[2018-08-29] MEDS: SODIUM CHLORIDE 0.9% 1000ML 1,000 ML IV SCH (04:07)
[2018-08-29] MEDS ORDERED: ACETAMINOPHEN 1000 MG/100 ML IV PRN (04:45)
[2018-08-29 06:03] LABS: BASOPHILS % 0.8 % (0.0-1.0); EOSINOPHILS # (AUTO) 0.4 (0.0-0.4); EOSINOPHILS % 7.4 % (0.0-6.0); HEMATOCRIT 34.1 % (34.2-44.1); HEMOGLOBIN 10.6 g/dL (12.0-16.0); LYMPHOCYTES # (AUTO) 1.2 (1.0-3.2); LYMPHOCYTES % 24.7 % (18.0-39.1); MEAN CORPUSCULAR HEMOGLOBIN 30.3 pg (28-32); MEAN CORPUSCULAR HGB CONC 31.1 g/dL (31-35); MEAN CORPUSCULAR VOLUME 97.4 fL (81-99); MONOCYTES # (AUTO) 0.4 (0.2-0.8); MONOCYTES % 8.2 % (4.4-11.3); NEUTROPHILS # (AUTO) 2.9 (2.1-6.9); NEUTROPHILS % 58.7 % (38.7-80.0); PLATELET COUNT 277 x10e3/uL (140-360); RED CELL DISTRIBUTION WIDTH 13.3 % (11.7-14.4)
[2018-08-29 06:19] LABS: ANION GAP 9.8 mmol/L (8-16); BLOOD UREA NITROGEN 10 mg/dL (7-26); BUN/CREATININE RATIO 13 (6-25); CALCIUM 8.2 mg/dL (8.4-10.2); CARBON DIOXIDE 25 mmol/L (22-29); CHLORIDE 108 mmol/L (98-107); EST GLOMERULAR FILTRATION RATE > 60 ML/MIN (60-); GLUCOSE 94 mg/dL (74-118); POTASSIUM 3.8 mmol/L (3.5-5.1); SODIUM 139 mmol/L (136-145)
--- NOTE | 2018-08-29 07:00 | NUR ---
BEDSIDE ROUNDS COMPLETE NO DISTRESS NOTED, UPDATED ON POC VOICED UNDERSTANDING, RESPIRATIONS EVEN/ UNLABORED, DENIES PAIN AT THIS TIME, CALL LIGHT IN REACH WILL CONTINUE TO MONITOR
[2018-08-29 08:47] VITALS: BP 136/70
[2018-08-29 09:02] VITALS: BP 136/70
--- NOTE | 2018-08-29 09:40 | NUR ---
down to or left in stable condition
[2018-08-29] MEDS ORDERED: IOPAMIDOL 610MG/1ML 300 MG/ML VIAL IV ONE (10:27)
[2018-08-29] MEDS ORDERED: BELLADONNA/OPIUM 60 MG SUPP PR ONE (10:27)
[2018-08-29] MEDS ORDERED: BELLADONNA/OPIUM 30 MG SUPP RC PRN (11:15)
--- NOTE | 2018-08-29 12:10 | NUR ---
back to rm [id number] no distress noted, ambulated with assistance to bathroom, pink urine noted, no other co voiced call light in reach will continue to monitor
[2018-08-29] MEDS: PHENAZOPYRIDINE HCL 100 MG TAB PO SCH ×2 (12:58→17:24)
[2018-08-29] MEDS ORDERED: ACETAMINOPHEN/CODEINE 300MG - 30MG TAB PO PRN (14:00)
[2018-08-29] MEDS ORDERED: OXYBUTYNIN CHLORIDE 5 MG TAB PO SCH (15:00)
[2018-08-29] MEDS ORDERED: TYLENOL WITH C1 EACH PO (16:29)
[2018-08-29] MEDS ORDERED: LEVAQUIN500 MG PO (16:29)
[2018-08-29] MEDS ORDERED: DITROPAN XL5 MG PO (16:30)
[2018-08-29 16:32] VITALS: BP 127/67
[2018-08-29] MEDS ORDERED: SEVOFLURANE INHAL SOLN 250 ML PEN BTL ONE (18:16)
[2018-08-29] MEDS ORDERED: DEXAMETHASONE SOD PHOS INJ 4 MG/ML VIAL ONE (18:16)
[2018-08-29] MEDS ORDERED: ONDANSETRON HCL INJ 2MG/ML 2ML 2 MG/ML VIAL ONE (18:16)
[2018-08-29] MEDS ORDERED: LIDOCAINE HCL 2% LOCAL INJ 5 ML SDV VIAL INJ ONE (18:16)
[2018-08-29] MEDS ORDERED: PROPOFOL IV EMULSION 10 MG/ML 20 ML VIAL ONE (18:16)
[2018-08-29] MEDS ORDERED: GENTAMICIN SULFATE 40 MG/ML 2 ML VIAL ONE (18:16)
[2018-08-29] MEDS ORDERED: MIDAZOLAM HCL 2 MG/2 ML VIAL ONE (18:42)
[2018-08-29] MEDS ORDERED: FENTANYL CITRATE/PF 100MCG/2 ML INJ ONE (18:42)
--- NOTE | 2018-09-04 03:52 | Operative Report ---
DATE OF PROCEDURE: 08/29/2018 SURGEON: Julio C Dodd MD PREOPERATIVE DIAGNOSES: 1. Right hydronephrosis. 2. Urinary tract infection. POSTOPERATIVE DIAGNOSES: 1. Right hydronephrosis due to stricture. 2. Urinary tract infection. 3. Right ureteral stricture. 4. Atrophic (senile) vaginitis. 5. Mild cystocele. OPERATION PERFORMED: 1. Cystourethroscopy with bilateral ureteral catheterization and retrograde ureteropyelography. 2. Interpretation of retrograde ureteropyelography. 3. Supervision of fluoroscopy, no radiologist present. 4. Right ureteroscopy with dilation of ureteral stricture (separate procedure performed for the diagnosis of the stricture done with a separate scope). 5. Radiological services for supervision and interpretation of stricture dilation. 6. Cystourethroscopy and insertion of right indwelling ureteral stent (separate procedure performed to relieve the hydronephrosis due to stricture). 7. Pelvic examination under anesthesia. ANESTHESIA: General. COMPLICATIONS: None. CLINICAL SUMMARY: Nohemi Brooks is a 48-year-old woman, was felt to have a right obstructing ureterolithiasis with hydronephrosis and renal colic. She is brought for stenting. She is aware of the risks of bleeding, infection, injury to adjacent structures, need for additional procedures and elected to proceed. OPERATIVE PROCEDURE IN DETAIL: Informed consent was verified. Nohemi Brooks was properly identified, taken to the operating room, placed on the cystoscopy table in supine position. Anesthesia was uneventfully begun. The patient was carefully and gently repositioned in dorsal lithotomy position with all pressure points well padded. Her genitalia were prepared and draped in usual sterile fashion. The cystoscope sheath was inserted in the patient's urethra and bladder was drained. Panendoscopy revealed some mild erythema and no suspicious mucosal lesions were identified. There were no true diverticula, normally positioned ureteral orifices were noted. Ureteral catheter was used to cannulate the right ureter and retrograde ureteropyelography was performed. A guidewire was then placed into the right ureter and guided to the level of the patient's kidney. We tried to perform semi-rigid ureteroscopy alongside this wire. As we advanced into the ureter, we found a dense stricture with significant blanching. We believe this stricture caused by radiation, which the patient obtained for her advanced surgical cancer, it has now been treated successfully. We utilized coaxial dilator sheath as well as ureteral dilators to progressively dilate the ureter. We then utilized the semi-rigid ureteroscope to gently dilate across densely strictured region in the distal right ureter. With cystoscopic and fluoroscopic guidance, the right-sided indwelling ureteral stent was then placed, it was coiled in the patient's kidney as well as the patient's bladder. The retaining suture was cut short. Interpretation of retrograde ureteropyelography contrast was instilled in a retrograde fashion bilaterally. On the right-hand side, there was hydroureteronephrosis down to the level, where we dilated the ureteral stricture. The stent was in good position, coiled the patient's kidneys as well as the patient's bladder at the end of the case. Left side was unremarkable. There were no tumors, no stones, no diverticula. Unobstructed drainage was observed fluoroscopically. The patient's bladder was drained. The cystoscope was withdrawn. Pelvic examination revealed atrophic vaginitis with grade 1 cystocele. There were no suspicious mucosal lesions noted. No palpable pelvic masses could be appreciated. The patient was then uneventfully reversed from anesthesia and taken to recovery room in stable condition. Explicit postop instructions were given. We will plan on returning the patient to the operating room electively in several weeks to remove her stent, perform ureteroscopy and determine whether chronic stenting will be required versus no additional treatment. Julio C Dodd MD [facility] /[id number] cc: Cash Medina MD
== END 2018-08-29 17:23 | disposition home or self-care (01) | DRG 661 ==
LOC: ER 15:44 → ERHOLD 20:18 → MED/SURG 22:16
PROVIDERS: ADMIT Internal Medicine; ATTEND Internal Medicine
PROC: BT141ZZ Fluoroscopy of Kidneys, Ureters and Bladder using Low Osmolar Contrast (ICD-10-PCS; 2018-08-29)
PROC: 0T768DZ Dilation of Right Ureter with Intraluminal Device, Via Natural or Artificial Opening Endoscopic (ICD-10-PCS; principal; 2018-08-29 11:00)
DX: N13.6 Pyonephrosis (principal); N17.9 Acute kidney failure, unspecified; D64.9 Anemia, unspecified; I12.9 Hypertensive chronic kidney disease with stage 1 through stage 4 chronic kidney disease, or unspecified chronic kidney disease; N18.3 Chronic kidney disease, stage 3 (moderate); N95.2 Postmenopausal atrophic vaginitis; N81.10 Cystocele, unspecified; Z92.3 Personal history of irradiation; Z85.41 Personal history of malignant neoplasm of cervix uteri; Z92.21 Personal history of antineoplastic chemotherapy
CPT/HCPCS: 36415; 74018; 74176; 74420; 80048; 80053; 81001; 81025; 83970; 84550; 85025; 87086; 87186; 99284; C1758; C2617; J0696; J1100; J1580; J1885; J2001; J2250; J2405; J7030

== ENCOUNTER → 2018-10-06 | Day surgery (SDC) | payer OTHER ==
[~2018-10-06] MED LIST changes: +B&O 60MG R/S 60 MG SUPP PR ONE; +CITALOPRAM HBR20 MG PO; +DEXAMETHASONE SOD PHOS INJ 4 MG/ML VIAL ONE; +DITROPAN XL5 MG PO; +ESTRADIOL1 MG PO; +FENTANYL CITRATE/PF 100MCG/2 ML INJ ONE; +GABAPENTIN800 MG PO; +GENTAMICIN 80MG/NS 100 ML 200 ML IV ONE; +IOPAMIDOL 610MG/1ML 300 MG/ML VIAL IV ONE; +KETAMINE HCL INJ 50 MG/ML 10 ML VIAL ONE; +KETOROLAC TROME10 MG PO; +LEVAQUIN500 MG PO; +LIDOCAINE HCL 2% LOCAL INJ 5 ML SDV VIAL INJ ONE; +LISINOPRIL20 MG PO; +LYRICA75 MG PO; +MIDAZOLAM HCL 2 MG/2 ML VIAL ONE; +ONDANSETRON HCL INJ 2MG/ML 2ML 2 MG/ML VIAL ONE; +PROPOFOL IV EMULSION 10 MG/ML 20 ML VIAL ONE; +SEVOFLURANE INHAL SOLN 250 ML PEN BTL ONE; +TYLENOL WITH C1 EACH PO
[2018-10-06 08:50] VITALS: BP 100/74
--- NOTE | 2018-11-20 14:29 | Operative Report ---
DATE OF PROCEDURE: 10/06/2018 SURGEON: Julio C Dodd MD PREOPERATIVE DIAGNOSES: 1. Left nephrolithiasis. 2. Left indwelling ureteral stent. POSTOPERATIVE DIAGNOSES: 1. Left nephrolithiasis. 2. Left indwelling ureteral stent. 3. Grade 1 cystocele. 4. Urethral hypermobility. 5. Atrophic (senile) vaginitis. OPERATION PERFORMED: 1. Cystourethroscopy with complicated removal of left indwelling ureteral stent (separately performed with separate scope for the diagnosis of stent). 2. Left ureteroscopy with stone manipulation (surgery performed for the diagnosis of the stone, done with separate scope). 3. Radiological services for supervision and interpretation of ureteroscopy. 4. Interpretation of retrograde ureteropyelography. 5. Supervision of fluoroscopy, no radiologist present. 6. Pelvic examination. ANESTHESIA: General. COMPLICATIONS: None. CLINICAL SUMMARY: Nohemi Brooks is a 48-year-old woman with the above preoperative diagnoses. She is brought for management. She is aware of the risks of bleeding, infection, injury to adjacent structures, need for additional procedures and elected to proceed. OPERATIVE PROCEDURE IN DETAIL: Informed consent was verified. Nohemi Brooks was properly identified, taken to the operating room, placed on the cystoscopy table in supine position. Anesthesia was uneventfully begun. The patient was then carefully gently repositioned in the dorsal lithotomy position with all pressure points well padded. Her genitalia were prepared and draped in usual sterile fashion. The cystoscope sheath with obturator in place was atraumatically inserted into the patient's urethra and the bladder was drained. Panendoscopy revealed no suspicious mucosal lesions, no tumors, no stones, and no diverticula. A stent was noted to be emerging from the right ureteral orifice. There was mild erythema around the ureteral orifice, but no suspicious lesions were identified. A guidewire was then placed alongside the stent and guided to the level of the patient's kidney. The stent was then grasped completely, removed, and discarded. A semi-rigid ureteroscope was then inserted alongside the guidewire up into the distal right ureter. There were no stones noted and there were no tumors. The previous right ureteral stricture is believed related to the patient's previous radiotherapy and now that region was wide open and exhibited no resistance to ureteroscopy. Flexible ureteroscope was then brought up over the guidewire and guided to the level of the patient's kidney. 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 There were a few tiny little stones, one of these tiny stones was grasped with Nitinol Tipless basket and it was extracted for chemical analysis. The remaining with a very small stone should be passable. Interpretation of retrograde ureteropyelography contrast was instilled in a retrograde fashion via the ureteroscope. There were no suspicious lesions, there were no tumors, stones can be visualized. There was mild fullness, but no evidence of obstruction. Unobstructed drainage was observed fluoroscopically. The patient's bladder was then drained. Cystoscope was withdrawn. Pelvic examination revealed atrophic vaginitis with grade 1 cystocele. There was urethral hypermobility. No abnormal palpable pelvic masses could be appreciated. There were no obvious mucosal lesions. The patient was then uneventfully reversed from anesthesia and taken to recovery room in stable condition. There were no complications at the end of the procedure. She tolerated the procedure well. Plans will be to follow the patient up on a long-term basis and of course proceed with metabolic stone workup and ongoing urological followup. Julio C Dodd MD [facility] /[id number] cc: Cash Medina MD
== END | disposition home or self-care (01) ==
LOC: OR 05:00
PROVIDERS: ATTEND Urology
DX: N20.0 Calculus of kidney (principal); Z46.6 Encounter for fitting and adjustment of urinary device; I12.0 Hypertensive chronic kidney disease with stage 5 chronic kidney disease or end stage renal disease; N18.6 End stage renal disease; N81.10 Cystocele, unspecified; N36.41 Hypermobility of urethra; N95.2 Postmenopausal atrophic vaginitis; C53.9 Malignant neoplasm of cervix uteri, unspecified; I44.0 Atrioventricular block, first degree; G62.9 Polyneuropathy, unspecified; K44.9 Diaphragmatic hernia without obstruction or gangrene; K21.9 Gastro-esophageal reflux disease without esophagitis; F32.9 Major depressive disorder, single episode, unspecified; F41.9 Anxiety disorder, unspecified; Z01.810 Encounter for preprocedural cardiovascular examination
CPT/HCPCS: 52352; 74420; 88300; 93005; J1100; J1580; J2001; J2250; J2405; J2704; Q9967; J3010